=== PATIENT | male | born 1975 | race Caucasian/White ===

== ENCOUNTER 2022-07-14 12:30 | Emergency (ER) | payer OTHER, SELFPAY ==
--- NOTE | ~2022-07-14 | XR_ITS ---
EXAMINATION: XR CHEST CLINICAL INFORMATION: Chest pain. COMPARISON: None TECHNIQUE: 2 views of the chest were obtained. FINDINGS: No significant abnormality is noted involving the heart, lungs, mediastinum, bony thorax or soft tissues. XR/XR chest 2V IMPRESSION: No acute cardiopulmonary process.
--- NOTE | ~2022-07-14 | XR_ITS ---
EXAMINATION: XR SHOULDER, RIGHT CLINICAL INFORMATION: Right shoulder injury. COMPARISON: None TECHNIQUE: AP external rotation, Grashey, scapular Y, and axillary views of the right shoulder. FINDINGS: Mild right acromioclavicular degenerative joint changes are seen with mild joint space narrowing and marginal osteophyte formation. The right glenohumeral joint is unremarkable. There is no acute fracture. The visualized right ribs are intact. The soft tissues are unremarkable. XR/XR shoulder RT min 2V IMPRESSION: Mild right acromioclavicular degenerative joint changes with associated chronic changes. No acute abnormality.
--- NOTE | ~2022-07-14 | CT_ITS ---
EXAMINATION: CT SOFT TISSUE NECK WITH CONTRAST CLINICAL INFORMATION: Right lymphadenopathy COMPARISON: None TECHNIQUE: Following the administration of 60 mL of Omnipaque 350 intravenous contrast, helical imaging was performed in the axial plane with generation of coronal and sagittal reformatted images. This CT examination was performed using dose optimization techniques as appropriate, variously including the following: *Automated exposure control. *Adjustment of mA and/or kV according to patient size (this includes techniques or standardized protocols for targeted exams where dose is matched to indication/reason for exam; i.e. extremities or head). *Use of iterative reconstruction technique. DLP: 516.31 mGy-cm mGy-cm. FINDINGS: There is a heterogeneously enhancing mass predominantly involving the superficial, and to a lesser extent, the deep lobes of the right parotid gland measuring 2.6 x 2.0 x 3.3 cm. Multiple hypodense areas which may reflect cystic change/necrosis. This corresponds to the location of a palpable marker. There is bulging of the overlying skin contour. No pathologically enlarged asymmetric though nonpathologic size criteria right level 2A lymph node measuring 1.3 cm and additional scattered nonpathologically enlarged cervical chain lymph nodes. The oral cavity is normal. Symmetric prominence of bilateral palatine tonsils, probably reactive. Soft tissue along the base of tongue partially effacing the vallecula probably due to lingual tonsillar hypertrophy. Slight asymmetric medialization of the right aryepiglottic fold with prominence of right pyriform sinus and prominent right laryngeal vestibule, which can be correlated clinically for signs of right vocal cord paresis. The left parotid and bilateral submandibular glands are normal. The fat planes of the skull base and soft tissues of the nasopharynx are unremarkable. Carious left posterior mandibular molar tooth. Scattered periapical lucencies, most pronounced of the left maxillary canine tooth with erosion of the overlying buccal cortex. The paranasal sinuses and mastoid air cells are well aerated. The temporomandibular joints are normal. Enlarged and heterogeneous appearance of the thyroid gland which can be correlated with direct function tests for the possibility of thyroiditis. Mild C6-C7 discogenic disease with anterior endplate osteophyte and mild multilevel cervical spondylosis. No suspicious osseous lesion. Normal enhancement of the cervical vascular structures. The imaged portions of the brain parenchyma are unremarkable. Thinning of the bony canals overlying the distal cavernous/supraclinoid internal carotid arteries with possible dehiscence into the sphenoid sinuses. Normal enhancement of the intracranial vascular structures. CT/CT soft tissue neck w IV con IMPRESSION: Heterogeneously enhancing mass predominantly centered within the superficial lobe of the right parotid gland with internal cystic areas/necrosis measuring 2.6 x 2.0 x 3.3 cm. While this may reflect a pleomorphic adenoma, the mass is incompletely characterized on this examination and could be further diagnostically assessed with ultrasound or contrast-enhanced MRI. Nonpathologic size criteria though slightly asymmetric right level 2A lymph node measuring 1.3 cm. Findings described above which can be correlated for signs of right vocal cord paresis. Carious left posterior mandibular molar tooth; correlate with dental examination. Enlarged and heterogeneous appearance of the thyroid gland which can be correlated with direct function tests for the possibility of thyroiditis. Mild
[2022-07-14 12:52] VITALS: BP 131/84; PULSE 69; RESP 20; TEMP 36.7; O2SAT 98; BMI 25.8
[2022-07-14 14:43] VITALS: BP 107/88; PULSE 52; RESP 16; TEMP 36.7; O2SAT 97
[2022-07-14 16:11] VITALS: BP 150/118; PULSE 64; RESP 18; O2SAT 99
--- NOTE | 2022-07-14 16:57 | ECG_ITS ---
Test Reason : cp Blood Pressure : / mmHG Vent. Rate : 056 BPM Atrial Rate : 056 BPM P-R Int : 156 ms QRS Dur : 086 ms QT Int : 408 ms P-R-T Axes : 032 018 019 degrees QTc Int : 393 ms Sinus bradycardia Otherwise normal ECG No previous ECGs available Referred By: Vickie Jose Electronically Signed By:PRIMO CHUNG MD
--- NOTE | 2022-07-14 17:37 | ED.SKABFB ---
HPI - Skin/Abscess/Foreign Bdy General Chief complaint: Skin/Abscess/Foreign Body <Vickie Jose NP - Last Filed: 07/14/22 19:38> Stated complaint: Ear pain/Shoulder pain <Vickie Jose NP - Last Filed: 07/14/22 19:38> Time Seen by Provider: 07/14/22 16:19 <Vickie Jose NP - Last Filed: 07/14/22 19:38> Source: patient <Vickie Jose NP - Last Filed: 07/14/22 19:38> Mode of arrival: ambulatory <Vickie Jose NP - Last Filed: 07/14/22 19:38> Limitations: no limitations <Vickie Jose NP - Last Filed: 07/14/22 19:38> History of Present Illness HPI narrative: Pt is a 47 y/o male with no significant medical history with multiple complaints with his cc being tenderness and swelling to the right side of the neck. He states that approximately one month ago he hurt his right shoulder and it occasionally bothers him. In the last week, his neck on his right side started to bother him. Two days ago, he noticed a lump on the right side of the neck and has swelling to the jaw and face. He has nausea and vomited once or twice in the last couple of days. Along with that, he complains of feeling fatigued over the last two weeks, he also has been having unprotected sex with two female partners since being on a break from his the past two weeks and is having pain with urination. He also mentioned that he has been drinking four 20oz Red Bull drinks per day and nothing else for fluid intake. He states he feels like he is losing weight unintentionally, but has not weighed himself. He has not seen a doctor for approximately three years and said he felt like he needed to get checked once his face and neck swelled up. He denies current chest pain, sob, headache, dizziness, difficulty swallowing, back pain, abd pain, blood in urine, blood in stool or diarrhea. <Vickie Jose NP - Last Filed: 07/14/22 19:38> Related Data Home medications: Previous Rx's Medication Instructions Recorded doxycycline monohydrate 100 mg 100 mg PO BID #14 tabs 07/14/22 tablet <Vickie Jose NP - Last Filed: 07/14/22 19:38> Allergies/Adverse reactions: Allergies Allergy/AdvReac Type Severity Reaction Status Date / Time No Known Allergies Allergy Verified 07/14/22 16:55 <Vickie Jose NP - Last Filed: 07/14/22 19:38> Review of Systems Review of Systems: Yes all other systems are reviewed and are negative <Vickie Jose NP - Last Filed: 07/14/22 19:38> Constitutional: Constitutional: Reports no additional constitutional complaints, Denies body ache(s), Denies chills, Denies fever(s), Denies headache(s) and Denies weakness <Vickie Jose NP - Last Filed: 07/14/22 19:38> Eyes: Eyes: Reports no additional eye complaints and Denies change in vision <Vickie Jose NP - Last Filed: 07/14/22 19:38> ENT: Reports system reviewed and no additional complaints, except as documented, Denies dizziness, Denies headache(s), Denies nasal congestion, Denies nasal discharge and Reports neck pain <Vickie Jose NP - Last Filed: 07/14/22 19:38> Cardiovascular: Cardiovascular: Reports no additional cardiovascular complaints, Denies chest pain, Denies leg edema and Denies dyspnea <Vickie Jose NP - Last Filed: 07/14/22 19:38> Respiratory: Respiratory: Reports no additional respiratory complaints, Denies cough and Denies dyspnea <Vickie Jose NP - Last Filed: 07/14/22 19:38> Gastrointestinal: Gastrointestinal: Reports no additional gastrointestinal complaints, Denies abdominal pain, Denies diarrhea, Denies nausea and Denies vomiting <Vickie Jose NP - Last Filed: 07/14/22 19:38> Genitourinary: Genitourinary: Reports dysuria, Denies flank pain, Denies penile discharge, Denies scrotal swelling, Denies testicular pain, Denies urinary frequency, Denies urinary hesitancy, Denies urinary incontinence and Denies urinary urgency <Vickie Jose NP - Last Filed: 07/14/22 19:38> Musculoskeletal: Musculoskeletal: Reports no additional musculoskeletal complaints, Denies back pain, Reports arthralgias, Denies joint swelling, Reports neck pain, Denies numbness and Denies tingling <Vickie Jose NP - Last Filed: 07/14/22 19:38> Integumentary/Breasts: Skin/Breast: Reports system reviewed and no additional complaints, except as docu and Denies rash <Vickie Jose WINE CE[employer] WORKER - Last Filed: 07/14/22 19:38> Neurologic: Reports system reviewed and no additional complaints, except as documented, Denies Abnormal speech present, Denies dizziness, Denies headache(s), Denies numbness, Denies tingling and Denies weakness <Vickie Jose NP - Last Filed: 07/14/22 19:38> [facility] Past Medical History Attestation statement: The following information was validated with the patient. <Vickie Jose NP - Last Filed: 07/14/22 19:38> Source: old records reviewed and nursing notes reviewed <Vickie Jose NP - Last Filed: 07/14/22 19:38> Social History Social History: Social History Advance Directives: No Advance Directives Information Provided: No <Vickie Jose NP - Last Filed: 07/14/22 19:38> Physical Exam Vital Signs: Vital Signs: Last Vital Signs Temp 98.1 F 07/14/22 14:43 Pulse 64 07/14/22 16:11 Resp 18 07/14/22 16:11 BP 150/118 H 07/14/22 16:11 Pulse Ox 99 07/14/22 16:11 O2 Del Method 07/14/22 16:11 BMI result Body Mass Index 25.8 <Vickie Jose NP - Last Filed: 07/14/22 19:38> Vital Signs: Last Vital Signs Temp 98.1 F 07/14/22 14:43 Pulse 64 07/14/22 16:11 Resp 18 07/14/22 16:11 BP 150/118 H 07/14/22 16:11 Pulse Ox 99 07/14/22 16:11 O2 Del Method 07/14/22 16:11 BMI result Body Mass Index 25.8 <Ramakrishna Mancilla - Last Filed: 07/14/22 21:09> Const: General: cooperative, healthy appearing, comfortable and no acute distress <Vickie Jose NP - Last Filed: 07/14/22 19:38> Orientation/consciousness: patient oriented x3 <Vickie Jose NP - Last Filed: 07/14/22 19:38> Limitations: no limitations <Vickie Jose NP - Last Filed: 07/14/22 19:38> HEENT: Head: Yes normal to inspection <Vickie Jose NP - Last Filed: 07/14/22 19:38> Ears: hearing grossly normal bilaterally and TM's normal bilaterally <Vickie Jose NP - Last Filed: 07/14/22 19:38> General nose exam: Normal external nose present <Vickie Jose NP - Last Filed: 07/14/22 19:38> Face and sinus: Yes normal facial exam <Vickie Jose NP - Last Filed: 07/14/22 19:38> Mouth: Normal oral and palatal mucosa present <Vickie Jose NP - Last Filed: 07/14/22 19:38> Throat: Yes posterior oropharynx normal, Yes tonsils normal and Yes uvula midline <Vickie Jose NP - Last Filed: 07/14/22 19:38> Eyes: General: appearance normal, both eyes and all related structures <Vickie Jose NP - Last Filed: 07/14/22 19:38> Pupils: Equal, round and reactive pupils present <Vickie Jose NP - Last Filed: 07/14/22 19:38> Neck: Other: there is a large lymph node noted to the right submandibular area which is soft, mobile, nontender there is a 2nd large lymph noted noted to the right anterior cervical area which is soft, mobile and nontender <Vickie Jose NP - Last Filed: 07/14/22 19:38> Neck: Yes normal visual inspection, Yes full ROM, Yes no meningeal signs and Yes lymphadenopathy <Vickie Jose W[employer] CELL[employer] WORKER - Last Filed: 07/14/22 19:38> Chest: Chest palpation & inspection: normal inspection of the chest <Vickie Jose W[employer] CELL[employer] WORKER - Last Filed: 07/14/22 19:38> Resp: Effort & Inspection: normal respiratory effort <Vickie Jose W[employer] CELL[employer] WORKER - Last Filed: 07/14/22 19:38> Auscultation: clear to auscultation bilaterally <Vickie Jose W[employer] CE[employer] WORKER - Last Filed: 07/14/22 19:38> Cardio: Rate: regular rate <Vickie Jose [employer] CELL[employer] WORKER - Last Filed: 07/14/22 19:38> Rhythm: regular rhythm <Vickie Jose W[employer] CELL[employer] WORKER - Last Filed: 07/14/22 19:38> Peripheral pulses: Peripheral pulses 2+ throughout <Vickie Jose WINE CELL[employer] WORKER - Last Filed: 07/14/22 19:38> GI: Inspection: Yes normal to inspection <Vickie oJse [employer] CELL[employer] WORKER - Last Filed: 07/14/22 19:38> Palpation (GI): Soft to palpation and nontender <Vickie Jose W[employer] CELL[employer] WORKER - Last Filed: 07/14/22 19:38> Auscultation: normal bowel sounds <Vickie Jose WINE CELL[employer] WORKER - Last Filed: 07/14/22 19:38> Back/Spine/Pelvis: Thoracic/Lumbar Spine: thoracic and lumbar spine normal to inspection <Vickie Jose W[employer] CE[employer] WORKER - Last Filed: 07/14/22 19:38> Skin: General skin exam: no rashes or lesions noted <Vickie Jose [employer] CELL[employer] WORKER - Last Filed: 07/14/22 19:38> Neuro: General: patient oriented x3, moves all extremities, no meningeal signs, no focal motor deficits and normal sensation to monofilament <Vickie Jose WINE CELLAR WORKER - Last Filed: 07/14/22 19:38> Cranial nerves: Yes CN's II-XII intact bilaterally, Yes Equal, round and reactive pupils present, Yes Bilaterally intact EOM present, Yes Nystagmus not present and Yes Normal facial strength present <Vickiedejon Jose NP - Last Filed: 07/14/22 19:38> Cognition (Neuro): normal cognition <Vickiedejon Jose NP - Last Filed: 07/14/22 19:38> Speech: No Abnormal speech present <Vickie RishiSEBASTIEN sanders - Last Filed: 07/14/22 19:38> Gait exam (Neuro): Normal gait present <Vickiedejon Jose NP - Last Filed: 07/14/22 19:38> Motor exam (neuro): 5/5 motor strength present throughout <Vickie RishiSEBASTIEN sanders - Last Filed: 07/14/22 19:38> Sensory Exam: Normal double simultaneous stimulation for sensation <Vickiedejon Jose NP - Last Filed: 07/14/22 19:38> Extrem: General: Yes normal to inspection, Yes no pedal edema and Yes no calf tenderness <Vickie Jose NP - Last Filed: 07/14/22 19:38> Shoulder/upper arm images: 1. + swelling with tenderness on exam with ?deformity noted patient is able to move the right shoulder but has pain with abduction. Normal radial and ulnar pulses distally. Normal sensation. <Vickie Jose NP - Last Filed: 07/14/22 19:38> Course Course Course Narrative: 1939-Sign out to [address] pending CT soft tissue neck. <Vickiemargaret Jose NP - Last Filed: 07/14/22 19:38> Reevaluation(s) Reevaluation #1: Patient was seen somewhat tenacious pending CT scan of the neck which shows a small parotid gland with some surrounding lymphadenopathy. The patient referred to ENT for follow-up. Results were discussed with the patient. There is no evidence of airway compromise. <Ramakrishna Mancilla - Last Filed: 07/14/22 21:09> Medications Administered Discontinued Medications Generic Name Dose Route Start Last Admin Trade Name Danilo PRN Reason Stop Dose Admin Ceftriaxone Sodium 500 mg/ 50 mls @ 100 mls/hr 07/14/22 19:25 07/14/22 20:23 Sodium Chloride IV 07/14/22 19:54 Infused ONCE ONE Infusion Iohexol 100 ml 07/14/22 19:40 07/14/22 19:42 Iohexol 350 Mg/Ml 100 Ml Infus..Btl IV 07/14/22 19:41 60 ml ONCE ONE Administration <Vickie Jose NP - Last Filed: 07/14/22 19:38> Medications Administered Discontinued Medications Generic Name Dose Route Start Last Admin Trade Name Danilo PRN Reason Stop Dose Admin Ceftriaxone Sodium 500 mg/ 50 mls @ 100 mls/hr 07/14/22 19:25 07/14/22 20:23 Sodium Chloride IV 07/14/22 19:54 Infused ONCE ONE Infusion Iohexol 100 ml 07/14/22 19:40 07/14/22 19:42 Iohexol 350 Mg/Ml 100 Ml Infus..Btl IV 07/14/22 19:41 60 ml ONCE ONE Administration <Ramakrishna Mancilla - Last Filed: 07/14/22 21:09> Medical Decision Making Medical Decision Making MDM Narrative: This a 47-year-old male with no known medical history who presents to the emergency with multiple complaints. -patient reports right shoulder pain for 1 month after having an injury that was traumatic. Patient was never seen for this and reports chronic continued pain in the right shoulder. On exam patient with significant tenderness, swelling and ? deformity over the distal clavicular area. consider fracture, AC joint separation, dislocation. Will check x-rays -patient also complaining of dysuria with recent new sexual partners and unprotected sexual intercourse. exam normal. Will check UA, CT NG - patient also reports over the last 2-3 days he has noticed right neck swelling and discomfort. He reports he did have some facial swelling but I do not appreciate any on exam. He does have some significant lymphadenopathy on the right submandibular and anterior cervical area. Posterior oropharynx is normal. No recent URI symptoms or flu-like symptoms. Patient with no difficulty swallowing or breathing. Patient denies any night sweats but does report some unintentional weight loss please unable to quantify this. Will obtain labs including mono spot, Lyme panel, viral testing. will check chest x-ray, CT soft tissue neck with IV contrast <Vickie Jose NP - Last Filed: 07/14/22 19:38> Differential Diagnosis Differential Diagnoses: The differential diagnosis associated with the presentation includes <Vickie Jose NP - Last Filed: 07/14/22 19:38> Cervical lymphadenopathy HIV TB Mononucleosis Malignancy infection dysuria UTI Gonorrhea Chlamydia Shoulder injury Dislocation Fracture <Vickie Blackwelltommy, WINE CELLAR WORKER - Last Filed: 07/14/22 19:38> Lab Data MDM Lab Attestation statement: I reviewed the patient's lab results. <Vickie Blackwelltommy, WINE CELLAR WORKER - Last Filed: 07/14/22 19:38> Result Diagrams: 07/14/22 17:55 07/14/22 17:55 <Vickiemargaret Jose, WINE CE[employer]AR WORKER - Last Filed: 07/14/22 19:38> Labs: Lab Results 07/14/22 07/14/22 07/14/22 Range/Units 17:55 17:55 17:55 WBC 6.8 (4.8-10.8) X10*3/uL RBC 4.49 L (4.60-5.80) X10*6/uL Hgb 15.7 (14.0-18.0) g/dl Hct 45.2 (42.0-52.0) % MCV 100.7 H (80.0-98.0) fL MCH 35.0 H (27.0-33.0) pg MCHC 34.7 (31.0-36.0) g/dl RDW 14.2 (11.0-16.0) % Plt Count 271 (160-400) X10*3/uL MPV 9.4 (9.4-12.4) fL Immature Gran % (Auto) 0.7 H (0.0-0.4) % Neut % (Auto) 35.9 L (45-73) % Lymph % (Auto) 53.6 H (20-40) % [place] % (Auto) 5.3 (2-11) % Eos % (Auto) 3.8 (0-4) % Baso % (Auto) 0.7 (0-2) % Lymph # (Auto) 3.6 (1.2-4.9) X10*3/uL [place] # (Auto) 0.4 (0.1-1.2) X10*3/uL Eos # (Auto) 0.3 (0.0-0.4) X10*3/uL Baso # (Auto) 0.1 (0.0-0.2) X10*3/uL Abs Immat Gran (auto) 0.05 H (0.00-0.03) X10*3/uL Absolute Neuts (auto) 2.4 (2.0-8.3) x10*3/uL Absolute Nucleated RBC 0.000 (0.0-0.012) X10*3/uL Nucleated RBC % (auto) 0.0 (0.0-0.2) /100WBC PT 12.3 (10.0-13.1) SEC INR 1.1 (0.9-1.1) Sodium 139 (135-145) mmol/L Potassium 4.2 (3.3-5.1) mmol/L Chloride 105 (96-108) mmol/L Carbon Dioxide 29 (22-29) mmol/L Anion Gap 9 L (12-20) BUN 15 (9-16) mg/dL Creatinine 0.91 (0.5-1.4) mg/dL Estim Creat Clear Calc 88.6 Estimated GFR > 60 Random Glucose 82 (60-115) mg/dL Lactic Acid (0.5-2.0) mmol/L Calcium 8.9 (8.4-10.2) mg/dL Total Bilirubin 0.6 (0.0-1.0) mg/dL Direct Bilirubin < 0.2 (0.0-0.5) mg/dL AST 25 (5-37) U/L ALT 18 (0-40) U/L Alkaline Phosphatase 114 (39-117) U/L Total Protein 7.6 (6.5-8.0) g/dL Albumin 4.3 (3.5-5.0) g/dL Urine Color Urine Appearance Urine pH (5.0-9.0) Ur Specific [place] (1.005-1.025) Urine Protein (Neg-Trace) mg/dL Urine Glucose (UA) (Negative) mg/dL Urine Ketones (Negative) mg/dL Urine Blood (Negative) Urine Nitrite (Negative) Ur Leukocyte Esterase (Negative) Monoscreen (Negative) Influenza Type A (PCR) (Negative) Influenza Type B (PCR) (Negative) RSV RNA Qual (PCR) (Negative) SARS-CoV-2 RNA (RT-PCR) (Negative) S. pyogenes GrpA SUMMER (Negative) 07/14/22 07/14/22 07/14/22 Range/Units 17:55 17:55 17:55 WBC (4.8-10.8) X10*3/uL RBC (4.60-5.80) X10*6/uL Hgb (14.0-18.0) g/dl Hct (42.0-52.0) % MCV (80.0-98.0) fL MCH (27.0-33.0) pg MCHC (31.0-36.0) g/dl RDW (11.0-16.0) % Plt Count (160-400) X10*3/uL MPV (9.4-12.4) fL Immature Gran % (Auto) (0.0-0.4) % Neut % (Auto) (45-73) % Lymph % (Auto) (20-40) % [place] % (Auto) (2-11) % Eos % (Auto) (0-4) % Baso % (Auto) (0-2) % Lymph # (Auto) (1.2-4.9) X10*3/uL [place] # (Auto) (0.1-1.2) X10*3/uL Eos # (Auto) (0.0-0.4) X10*3/uL Baso # (Auto) (0.0-0.2) X10*3/uL Abs Immat Gran (auto) (0.00-0.03) X10*3/uL Absolute Neuts (auto) (2.0-8.3) x10*3/uL Absolute Nucleated RBC (0.0-0.012) X10*3/uL Nucleated RBC % (auto) (0.0-0.2) /100WBC PT (10.0-13.1) SEC INR (0.9-1.1) Sodium (135-145) mmol/L Potassium (3.3-5.1) mmol/L Chloride (96-108) mmol/L Carbon Dioxide (22-29) mmol/L Anion Gap (12-20) BUN (9-16) mg/dL Creatinine (0.5-1.4) mg/dL Estim Creat Clear Calc Estimated GFR Random Glucose (60-115) mg/dL Lactic Acid 0.6 (0.5-2.0) mmol/L Calcium (8.4-10.2) mg/dL Total Bilirubin (0.0-1.0) mg/dL Direct Bilirubin (0.0-0.5) mg/dL AST (5-37) U/L ALT (0-40) U/L Alkaline Phosphatase (39-117) U/L Total Protein (6.5-8.0) g/dL Albumin (3.5-5.0) g/dL Urine Color Urine Appearance Urine pH (5.0-9.0) Ur Specific [place] (1.005-1.025) Urine Protein (Neg-Trace) mg/dL Urine Glucose (UA) (Negative) mg/dL Urine Ketones (Negative) mg/dL Urine Blood (Negative) Urine Nitrite (Negative) Ur Leukocyte Esterase (Negative) Monoscreen Negative (Negative) Influenza Type A (PCR) (Negative) Influenza Type B (PCR) (Negative) RSV RNA Qual (PCR) (Negative) SARS-CoV-2 RNA (RT-PCR) (Negative) S. pyogenes GrpA SUMMER Negative (Negative) 07/14/22 07/14/22 Range/Units 17:55 17:55 WBC (4.8-10.8) X10*3/uL RBC (4.60-5.80) X10*6/uL Hgb (14.0-18.0) g/dl Hct (42.0-52.0) % MCV (80.0-98.0) fL MCH (27.0-33.0) pg MCHC (31.0-36.0) g/dl RDW (11.0-16.0) % Plt Count (160-400) X10*3/uL MPV (9.4-12.4) fL Immature Gran % (Auto) (0.0-0.4) % Neut % (Auto) (45-73) % Lymph % (Auto) (20-40) % [place] % (Auto) (2-11) % Eos % (Auto) (0-4) % Baso % (Auto) (0-2) % Lymph # (Auto) (1.2-4.9) X10*3/uL [place] # (Auto) (0.1-1.2) X10*3/uL Eos # (Auto) (0.0-0.4) X10*3/uL Baso # (Auto) (0.0-0.2) X10*3/uL Abs Immat Gran (auto) (0.00-0.03) X10*3/uL Absolute Neuts (auto) (2.0-8.3) x10*3/uL Absolute Nucleated RBC (0.0-0.012) X10*3/uL Nucleated RBC % (auto) (0.0-0.2) /100WBC PT (10.0-13.1) SEC INR (0.9-1.1) Sodium (135-145) mmol/L Potassium (3.3-5.1) mmol/L Chloride (96-108) mmol/L Carbon Dioxide (22-29) mmol/L Anion Gap (12-20) BUN (9-16) mg/dL Creatinine (0.5-1.4) mg/dL Estim Creat Clear Calc Estimated GFR Random Glucose (60-115) mg/dL Lactic Acid (0.5-2.0) mmol/L Calcium (8.4-10.2) mg/dL Total Bilirubin (0.0-1.0) mg/dL Direct Bilirubin (0.0-0.5) mg/dL AST (5-37) U/L ALT (0-40) U/L Alkaline Phosphatase (39-117) U/L Total Protein (6.5-8.0) g/dL Albumin (3.5-5.0) g/dL Urine Color Yellow Urine Appearance Clear Urine pH 7.5 (5.0-9.0) Ur Specific [place] 1.025 (1.005-1.025) Urine Protein Trace (Neg-Trace) mg/dL Urine Glucose (UA) Negative (Negative) mg/dL Urine Ketones Negative (Negative) mg/dL Urine Blood Negative (Negative) Urine Nitrite Negative (Negative) Ur Leukocyte Esterase Negative (Negative) Monoscreen (Negative) Influenza Type A (PCR) NEGATIVE (Negative) Influenza Type B (PCR) NEGATIVE (Negative) RSV RNA Qual (PCR) NEGATIVE (Negative) SARS-CoV-2 RNA (RT-PCR) NEGATIVE (Negative) S. pyogenes GrpA SUMMER (Negative) <Vickie Jose, WINE CELL[employer] WORKER - Last Filed: 07/14/22 19:38> Lab Results 07/14/22 07/14/22 07/14/22 Range/Units 17:55 17:55 17:55 WBC 6.8 (4.8-10.8) X10*3/uL RBC 4.49 L (4.60-5.80) X10*6/uL Hgb 15.7 (14.0-18.0) g/dl Hct 45.2 (42.0-52.0) % MCV 100.7 H (80.0-98.0) fL MCH 35.0 H (27.0-33.0) pg MCHC 34.7 (31.0-36.0) g/dl RDW 14.2 (11.0-16.0) % Plt Count 271 (160-400) X10*3/uL MPV 9.4 (9.4-12.4) fL Immature Gran % (Auto) 0.7 H (0.0-0.4) % Neut % (Auto) 35.9 L (45-73) % Lymph % (Auto) 53.6 H (20-40) % [place] % (Auto) 5.3 (2-11) % Eos % (Auto) 3.8 (0-4) % Baso % (Auto) 0.7 (0-2) % Lymph # (Auto) 3.6 (1.2-4.9) X10*3/uL [place] # (Auto) 0.4 (0.1-1.2) X10*3/uL Eos # (Auto) 0.3 (0.0-0.4) X10*3/uL Baso # (Auto) 0.1 (0.0-0.2) X10*3/uL Abs Immat Gran (auto) 0.05 H (0.00-0.03) X10*3/uL Absolute Neuts (auto) 2.4 (2.0-8.3) x10*3/uL Absolute Nucleated RBC 0.000 (0.0-0.012) X10*3/uL Nucleated RBC % (auto) 0.0 (0.0-0.2) /100WBC PT 12.3 (10.0-13.1) SEC INR 1.1 (0.9-1.1) Sodium 139 (135-145) mmol/L Potassium 4.2 (3.3-5.1) mmol/L Chloride 105 (96-108) mmol/L Carbon Dioxide 29 (22-29) mmol/L Anion Gap 9 L (12-20) BUN 15 (9-16) mg/dL Creatinine 0.91 (0.5-1.4) mg/dL Estim Creat Clear Calc 88.6 Estimated GFR > 60 Random Glucose 82 (60-115) mg/dL Lactic Acid (0.5-2.0) mmol/L Calcium 8.9 (8.4-10.2) mg/dL Total Bilirubin 0.6 (0.0-1.0) mg/dL Direct Bilirubin < 0.2 (0.0-0.5) mg/dL AST 25 (5-37) U/L ALT 18 (0-40) U/L Alkaline Phosphatase 114 (39-117) U/L Total Protein 7.6 (6.5-8.0) g/dL Albumin 4.3 (3.5-5.0) g/dL Urine Color Urine Appearance Urine pH (5.0-9.0) Ur Specific [place] (1.005-1.025) Urine Protein (Neg-Trace) mg/dL Urine Glucose (UA) (Negative) mg/dL Urine Ketones (Negative) mg/dL Urine Blood (Negative) Urine Nitrite (Negative) Ur Leukocyte Esterase (Negative) Monoscreen (Negative) Influenza Type A (PCR) (Negative) Influenza Type B (PCR) (Negative) RSV RNA Qual (PCR) (Negative) SARS-CoV-2 RNA (RT-PCR) (Negative) S. pyogenes GrpA SUMMER (Negative) 07/14/22 07/14/22 07/14/22 Range/Units 17:55 17:55 17:55 WBC (4.8-10.8) X10*3/uL RBC (4.60-5.80) X10*6/uL Hgb (14.0-18.0) g/dl Hct (42.0-52.0) % MCV (80.0-98.0) fL MCH (27.0-33.0) pg MCHC (31.0-36.0) g/dl RDW (11.0-16.0) % Plt Count (160-400) X10*3/uL MPV (9.4-12.4) fL Immature Gran % (Auto) (0.0-0.4) % Neut % (Auto) (45-73) % Lymph % (Auto) (20-40) % [place] % (Auto) (2-11) % Eos % (Auto) (0-4) % Baso % (Auto) (0-2) % Lymph # (Auto) (1.2-4.9) X10*3/uL [place] # (Auto) (0.1-1.2) X10*3/uL Eos # (Auto) (0.0-0.4) X10*3/uL Baso # (Auto) (0.0-0.2) X10*3/uL Abs Immat Gran (auto) (0.00-0.03) X10*3/uL Absolute Neuts (auto) (2.0-8.3) x10*3/uL Absolute Nucleated RBC (0.0-0.012) X10*3/uL Nucleated RBC % (auto) (0.0-0.2) /100WBC PT (10.0-13.1) SEC INR (0.9-1.1) Sodium (135-145) mmol/L Potassium (3.3-5.1) mmol/L Chloride (96-108) mmol/L Carbon Dioxide (22-29) mmol/L Anion Gap (12-20) BUN (9-16) mg/dL Creatinine (0.5-1.4) mg/dL Estim Creat Clear Calc Estimated GFR Random Glucose (60-115) mg/dL Lactic Acid 0.6 (0.5-2.0) mmol/L Calcium (8.4-10.2) mg/dL Total Bilirubin (0.0-1.0) mg/dL Direct Bilirubin (0.0-0.5) mg/dL AST (5-37) U/L ALT (0-40) U/L Alkaline Phosphatase (39-117) U/L Total Protein (6.5-8.0) g/dL Albumin (3.5-5.0) g/dL Urine Color Urine Appearance Urine pH (5.0-9.0) Ur Specific [place] (1.005-1.025) Urine Protein (Neg-Trace) mg/dL Urine Glucose (UA) (Negative) mg/dL Urine Ketones (Negative) mg/dL Urine Blood (Negative) Urine Nitrite (Negative) Ur Leukocyte Esterase (Negative) Monoscreen Negative (Negative) Influenza Type A (PCR) (Negative) Influenza Type B (PCR) (Negative) RSV RNA Qual (PCR) (Negative) SARS-CoV-2 RNA (RT-PCR) (Negative) S. pyogenes GrpA SUMMER Negative (Negative) 07/14/22 07/14/22 Range/Units 17:55 17:55 WBC (4.8-10.8) X10*3/uL RBC (4.60-5.80) X10*6/uL Hgb (14.0-18.0) g/dl Hct (42.0-52.0) % MCV (80.0-98.0) fL MCH (27.0-33.0) pg MCHC (31.0-36.0) g/dl RDW (11.0-16.0) % Plt Count (160-400) X10*3/uL MPV (9.4-12.4) fL Immature Gran % (Auto) (0.0-0.4) % Neut % (Auto) (45-73) % Lymph % (Auto) (20-40) % [place] % (Auto) (2-11) % Eos % (Auto) (0-4) % Baso % (Auto) (0-2) % Lymph # (Auto) (1.2-4.9) X10*3/uL [place] # (Auto) (0.1-1.2) X10*3/uL Eos # (Auto) (0.0-0.4) X10*3/uL Baso # (Auto) (0.0-0.2) X10*3/uL Abs Immat Gran (auto) (0.00-0.03) X10*3/uL Absolute Neuts (auto) (2.0-8.3) x10*3/uL Absolute Nucleated RBC (0.0-0.012) X10*3/uL Nucleated RBC % (auto) (0.0-0.2) /100WBC PT (10.0-13.1) SEC INR (0.9-1.1) Sodium (135-145) mmol/L Potassium (3.3-5.1) mmol/L Chloride (96-108) mmol/L Carbon Dioxide (22-29) mmol/L Anion Gap (12-20) BUN (9-16) mg/dL Creatinine (0.5-1.4) mg/dL Estim Creat Clear Calc Estimated GFR Random Glucose (60-115) mg/dL Lactic Acid (0.5-2.0) mmol/L Calcium (8.4-10.2) mg/dL Total Bilirubin (0.0-1.0) mg/dL Direct Bilirubin (0.0-0.5) mg/dL AST (5-37) U/L ALT (0-40) U/L Alkaline Phosphatase (39-117) U/L Total Protein (6.5-8.0) g/dL Albumin (3.5-5.0) g/dL Urine Color Yellow Urine Appearance Clear Urine pH 7.5 (5.0-9.0) Ur Specific [place] 1.025 (1.005-1.025) Urine Protein Trace (Neg-Trace) mg/dL Urine Glucose (UA) Negative (Negative) mg/dL Urine Ketones Negative (Negative) mg/dL Urine Blood Negative (Negative) Urine Nitrite Negative (Negative) Ur Leukocyte Esterase Negative (Negative) Monoscreen (Negative) Influenza Type A (PCR) NEGATIVE (Negative) Influenza Type B (PCR) NEGATIVE (Negative) RSV RNA Qual (PCR) NEGATIVE (Negative) SARS-CoV-2 RNA (RT-PCR) NEGATIVE (Negative) S. pyogenes GrpA [facility] (Negative) <Ramakrishna Mancilla - Last Filed: 07/14/22 21:09> Independent Interpretation I performed an independent interpretation of an: EKG and Plain X-Ray <Vickie Jose NP - Last Filed: 07/14/22 19:38> Interpretation: -I independently reviewed the x-ray of the right vemrnerz-g-rix read by radiologist as degenerative changes. On my own interpretation there is separation noted at the AC joint. This was likely from patient's trauma 1 month ago. Patient will be referred to ortho outpatient. I independently reviewed the EKG which shows sinus bradycardia with rate 56, normal WA, normal QRS, normal QT <Vickie Jose NP - Last Filed: 07/14/22 19:38> Radiology Impression Discussion of test interpretation with radiology: I have reviewed the radiologist's reading. <Vickie Jsoe NP - Last Filed: 07/14/22 19:38> Radiologist Impression: [address] [address] XRay Report Signed Patient: Dmitri Mackenzie MR#: [id number] : 1975 Acct:[id number] Age/Sex: 47 / M ADM Date: 07/14/22 Loc: HO.ED Attending Dr: Ordering Physician: Vickie Abdalla NP Date of Service: 07/14/22 Procedure(s): XR shoulder RT min 2V Accession Number(s): [id number] cc: Vickie Abdalla NP~ EXAMINATION: XR SHOULDER, RIGHT CLINICAL INFORMATION: Right shoulder injury.? COMPARISON: None? TECHNIQUE: AP external rotation, Grashey, scapular Y, and axillary views of the right shoulder. FINDINGS: Mild right acromioclavicular degenerative joint changes are seen with mild joint space narrowing and marginal osteophyte formation. The right glenohumeral joint is unremarkable. There is no acute fracture. The visualized right ribs are intact. The soft tissues are unremarkable.? XR/XR shoulder RT min 2V IMPRESSION: Mild right acromioclavicular degenerative joint changes with associated chronic changes. No acute abnormality. [address] [address] XRay Report Signed Patient: Dmitri Mackenzie MR#: [id number] : 1975 Acct:[id number] Age/Sex: 47 / M ADM Date: 07/14/22 Loc: .ED Attending Dr: Ordering Physician: Vickie Abdalla NP Date of Service: 07/14/22 Procedure(s): XR chest 2V Accession Number(s): [id number] cc: Vickie Abdalla NP~ EXAMINATION: XR CHEST CLINICAL INFORMATION: Chest pain. COMPARISON: None TECHNIQUE: 2 views of the chest were obtained. FINDINGS: No significant abnormality is noted involving the heart, lungs, mediastinum, bony thorax or soft tissues. XR/XR chest 2V IMPRESSION: No acute cardiopulmonary process. <Vickie Jose NP - Last Filed: 07/14/22 19:38> Discharge Plan Discharge Clinical Impression: Lymphadenopathy, Concern about STD in male without diagnosis, Right shoulder strain <Vickie Jose NP - Last Filed: 07/14/22 19:38> Patient Disposition: Still a Patient <Vickie Jose NP - Last Filed: 07/14/22 19:38> Instructions: Sexually Transmitted Diseases (ED), Muscle Strain (ED), Lymphadenopathy (ED) <Vickie Jose NP - Last Filed: 07/14/22 19:38> Additional Instructions: we did test you for sexually transmitted diseases but these test results are still pending. We are treating prophylactically with antibiotics you likely have a strain of one ligaments in your shoulder and so you need to follow-up with orthopedics for this. Follow-up with Dr. Castañeda for your swollen glands in your neck. <Vickie Jose NP - Last Filed: 07/14/22 19:38> Prescriptions: New doxycycline monohydrate 100 mg tablet 100 mg PO BID Qty: 14 0RF <Vickie Jose NP - Last Filed: 07/14/22 19:38> Referrals: [facility] [place]Provider Group] Johan Castañeda [Physician] - <Vickie Jose NP - Last Filed: 07/14/22 19:38>
[2022-07-14 18:02] LABS: MANUAL DIFF FLAG NO
[2022-07-14 18:11] LABS: Appearance Urine Clear; Color Urine Yellow; Glucose Urine UA Negative (Negative); IDNOW Serial# 6674DD1D; Leukocyte Esterase Urine Negative (Negative); Nitrite Urine Negative (Negative); PH 7.5 (5.0-9.0); Specific Gravity - Urine 1.025 (1.005-1.025); Strep A Nucleic Acid Negative (Negative); Urine Blood Negative (Negative); Urine Ketones Negative (Negative); Urine Protein Trace mg/dL (Neg-Trace)
[2022-07-14 18:17] LABS: INTERNATIONAL NORM RATIO 1.1 (0.9-1.1); Prothrombin Time 12.3 SEC (10.0-13.1)
[2022-07-14 18:20] LABS: Monotest Negative (Negative)
[2022-07-14 18:24] LABS: Basophils Absolute Auto 0.1 X10*3/uL (0.0-0.2); Basophils Percent Auto 0.7 % (0-2); Eosinophils Absolute Auto 0.3 X10*3/uL (0.0-0.4); Eosinophils Percent Auto 3.8 % (0-4); Hematocrit 45.2 % (42.0-52.0); Hemoglobin 15.7 g/dl (14.0-18.0); Imm Gran Abs Auto 0.05 X10*3/uL (0.00-0.03); Imm Gran Pct Auto 0.7 % (0.0-0.4); Lactic Acid 0.6 mmol/L (0.5-2.0); Lymphocytes Absolute Auto 3.6 X10*3/uL (1.2-4.9); Lymphocytes Percent Auto 53.6 % (20-40); Mean Corpuscular HGB Conc 34.7 g/dl (31.0-36.0); Mean Corpuscular Volume 100.7 fL (80.0-98.0); Mean Platelet Volume 9.4 fL (9.4-12.4); Monocytes Absolute Auto 0.4 X10*3/uL (0.1-1.2); Monocytes Percent Auto 5.3 % (2-11); Neutrophils Absolute Auto 2.4 x10*3/uL (2.0-8.3); Neutrophils Percent Auto 35.9 % (45-73); Platelet Count 271 X10*3/uL (160-400); Red Blood Count 4.49 X10*6/uL (4.60-5.80); Red Cell Distribution Width 14.2 % (11.0-16.0); White Blood Count 6.8 X10*3/uL (4.8-10.8)
[2022-07-14 18:28] LABS: Alanine Aminotransferase 18 U/L (0-40); Albumin Level 4.3 g/dL (3.5-5.0); Alkaline Phosphatase 114 U/L (39-117); Anion Gap 9 (12-20); Aspartate Amino Transferase 25 U/L (5-37); Bilirubin Direct < 0.2 mg/dL (0.0-0.5); Bilirubin Total 0.6 mg/dL (0.0-1.0); Blood Urea Nitrogen 15 mg/dL (9-16); Calcium 8.9 mg/dL (8.4-10.2); Carbon Dioxide 29 mmol/L (22-29); Chloride 105 mmol/L (96-108); Creatinine Clr Calc Pharmacy 88.6; Estimated Glomerular Filt Rate > 60; Glucose Random 82 mg/dL (60-115); Potassium 4.2 mmol/L (3.3-5.1); Sodium 139 mmol/L (135-145); Total Protein 7.6 g/dL (6.5-8.0)
[2022-07-14 19:15] LABS: Influenza A PCR NEGATIVE (Negative); Influenza B PCR NEGATIVE (Negative); Resp Syncy Virus RNA Qual PCR NEGATIVE (Negative); SARS COV2 PCR INHOUSE NEGATIVE (Negative)
[2022-07-14] MEDS: iohexoL 350 MG/ML 100 ML INFUS..BTL IV (19:42)
[2022-07-14 21:46] LABS: T4 Thyroxine 6.6 ug/dL (4.5-12.0)
[2022-07-15 07:15] LABS: CT PCR NOT DETECTED (Not Detect.); NG PCR NOT DETECTED (Not Detect.)
[2022-07-16 22:03] LABS: Lyme Abs Screen <0.90 index
== END 2022-07-14 21:14 | disposition still patient (30) ==
PROVIDERS: Nurse Practitioner Family; Physician Assistant; Emergency Provider Emergency Medicine
DX: R59.1 Generalized enlarged lymph nodes (principal); M25.511 Pain in right shoulder; S46.911D Strain of unspecified muscle, fascia and tendon at shoulder and upper arm level, right arm, subsequent encounter; X58.XXXD Exposure to other specified factors, subsequent encounter; Z20.2 Contact with and (suspected) exposure to infections with a predominantly sexual mode of transmission; Z20.822 Contact with and (suspected) exposure to COVID-19; Z20.828 Contact with and (suspected) exposure to other viral communicable diseases
CPT/HCPCS: 0241U; 0353U; 36415; 70491; 71046; 73030; 80048; 80076; 81003; 83605; 84436; 84443; 85025; 85610; 86308; 86617; 86618; 87040; 87651; 93005; 96365; 99283; 99284; J0696; Q9967

== ENCOUNTER 2023-03-23 16:03 | Emergency (ER) | payer OTHER, SELFPAY ==
--- NOTE | ~2023-03-23 | XR_ITS ---
EXAMINATION: XR CHEST CLINICAL INFORMATION: Cough. COMPARISON: Chest radiograph 07/14/2022. TECHNIQUE: 2 views of the chest were obtained. FINDINGS: Unchanged appearance of the cardiomediastinal silhouette. Stable central bronchovascular prominence. Redemonstration of a subtle nodular-like opacity projecting over the right lower lung in between the anterior fifth and sixth ribs. No new focal infiltrate. No pleural effusion or pneumothorax. No acute osseous findings. XR/XR chest 2V IMPRESSION: 1. No acute cardiopulmonary findings. 2. Unchanged central bronchovascular prominence. 3. Stable nodular-like opacity projecting over the right lower lobe, recommend evaluation with outpatient chest CT for further characterization to evaluate for underlying nodule.
[2023-03-23 16:11] VITALS: BP 152/103; PULSE 75; RESP 18; TEMP 36.7; O2SAT 98; BMI 28.9
--- NOTE | 2023-03-23 16:13 | ED.ABDPAIN ---
HPI - Abdominal Pain General Chief Complaint: Urogenital-Male Stated Complaint: stomach pain, appendix? back pain Time Seen by Provider: 03/23/23 19:00 History of Present Illness HPI narrative: patient with multiple complaints First complaint is intermittent episodes of upper abdominal burning pain that comes and goes over many months, he did vomit recently but today he is not nauseous not vomiting and is tolerating p.o. normally, no diarrhea no dysuria Second complaint is he is concerned he might have an STD because he has genital itching but denies any rash denies any lesions denies any burning with urination denies any discharge denies any sores Third complaint is he says he has been coughing recently but no shortness of breath no chest pain Review of systems there is no headache there is no confusion there is no fainting or feeling faint there is no vision changes no stiff neck no chest pain no shortness of breath no diarrhea no dysuria no skin rash no calf pain or swelling no leg swelling no weakness or numbness Related Data Previous Rx's Medication Instructions Recorded doxycycline monohydrate 100 mg 100 mg PO BID #14 tabs 07/14/22 tablet famotidine 20 mg tablet (Pepcid) 20 mg PO DAILY stomach acid pain 03/23/23 #30 tabs Allergies Allergy/AdvReac Type Severity Reaction Status Date / Time No Known Allergies Allergy Verified 07/14/22 16:55 [facility], [facility] Past Medical History Source: nursing notes reviewed Social History Social History Advance Directives: No Advance Directives Information Provided: No Physical Exam ED Vital Signs: Vital Signs - 24 hr 03/23/23 16:11 03/23/23 18:47 Temperature 98.1 F 98.0 F Pulse Rate 75 60 Respiratory Rate 18 18 Blood Pressure 152/103 H 140/90 H Pulse Oximetry 98 97 Oxygen Delivery Method Room Air BMI result Body Mass Index 28.9 general appearance is no distress comfortable cooperative the eyes are anicteric no pallor The pharynx no redness swelling or exudate, membranes moist, voice is normal Neck is supple Respiratory no distress The chest is clear to auscultation with full symmetric equal breath sounds no adventitious sounds Heart no obvious murmur The abdomen was soft and nontender with no rebound no guarding, no epigastric tenderness Genital exam was normal with no evidence of lesions rashes sores or discharge Extremities full range of motion x4 Skin no rash Neuro no focal motor sensory deficits, gait and balance are normal, motor is 5/5 x4, interaction comprehension and expression are normal, cranial nerves 2-12 intact as tested Course Course Course Narrative: This is an RME: Additional HPI, ROS, PE not included below will be deferred to primary provider. This is a [id number]-male presenting to the emergency department with a complaint of abdominal pain, nausea, and vomiting. Pt states that he has been messing around with women in the streets . Denies any fevers or chills. Last bowel movement was this morning. Abdomen nontender. Also wanting his ears checked. Plan: Labs UA CT NG Patient with complaint of body aches, itching in genital area, concerned about STD but denies any dysuria discharge or lesion, has had some epigastric intermittent upper abdominal all pain, but exam is nontender no rebound no guarding he is tolerating p.o., no nausea or vomiting now, he also complains of a cough , chest x-ray showed no acute pneumonia no acute pathology but there was concern about a nodular like opacity over the right lower lobe an outpatient CT was recommended for further characterization to evaluate the nodule He is getting a primary care doctor now and he is advised that he has several months to get this done and if he is unable to get it done he should return to the ER He is given a copy of his chest x-ray report He is otherwise well-appearing Labs had no acute abnormality except a minor low potassium of 3.2 and he is advised to eat bananas and maintain healthy diet and this should be recheck when he gets a primary care doctor Medical Decision Making Lab Data MDM Lab Attestation statement: I reviewed the patient's lab results. 03/23/23 16:38 03/23/23 16:38 Labs: Lab Results 03/23/23 03/23/23 Range/Units 16:38 19:22 WBC 7.8 (4.8-10.8) X10*3/uL RBC 4.41 L (4.60-5.80) X10*6/uL Hgb 15.2 (14.0-18.0) g/dl Hct 44.0 (42.0-52.0) % MCV 99.8 H (80.0-98.0) fL MCH 34.5 H (27.0-33.0) pg MCHC 34.5 (31.0-36.0) g/dl RDW 13.6 (11.0-16.0) % Plt Count 264 (160-400) X10*3/uL MPV 9.1 L (9.4-12.4) fL Immature Gran % (Auto) 0.4 (0.0-0.4) % Neut % (Auto) 41.4 L (45-73) % Lymph % (Auto) 46.1 H (20-40) % Miner % (Auto) 5.5 (2-11) % Eos % (Auto) 5.8 H (0-4) % Baso % (Auto) 0.8 (0-2) % Lymph # (Auto) 3.6 (1.2-4.9) X10*3/uL Miner # (Auto) 0.4 (0.1-1.2) X10*3/uL Eos # (Auto) 0.5 H (0.0-0.4) X10*3/uL Baso # (Auto) 0.1 (0.0-0.2) X10*3/uL Abs Immat Gran (auto) 0.03 (0.00-0.03) X10*3/uL Absolute Neuts (auto) 3.2 (2.0-8.3) x10*3/uL Absolute Nucleated RBC 0.000 (0.0-0.012) X10*3/uL Nucleated RBC % (auto) 0.0 (0.0-0.2) /100WBC Sodium 142 (135-145) mmol/L Potassium 3.2 L D (3.3-5.1) mmol/L Chloride 107 (96-108) mmol/L Carbon Dioxide 28 (22-29) mmol/L Anion Gap 10 L (12-20) BUN 11 (9-16) mg/dL Creatinine 1.05 (0.5-1.4) mg/dL Estim Creat Clear Calc 85.1 Estimated GFR > 60 Random Glucose 90 (60-115) mg/dL Calcium 9.1 (8.4-10.2) mg/dL Total Bilirubin 0.3 (0.0-1.0) mg/dL Direct Bilirubin 0.1 (0.0-0.5) mg/dL AST 19 (5-37) U/L ALT 15 (0-40) U/L Alkaline Phosphatase 89 (39-117) U/L Total Protein 7.5 (6.5-8.0) g/dL Albumin 4.3 (3.5-5.0) g/dL Urine Color Yellow Urine Appearance Clear Urine pH 6.0 (5.0-9.0) Ur Specific [place] 1.010 (1.005-1.025) Urine Protein Negative (Neg-Trace) mg/dL Urine Glucose (UA) Negative (Negative) mg/dL Urine Ketones Negative (Negative) mg/dL Urine Blood Small (1+) H (Negative) Urine Nitrite Negative (Negative) Ur Leukocyte Esterase Negative (Negative) Urine RBC 0-2 (0-2) /HPF Urine WBC 0-5 (0-5) /HPF Ur Squamous Epith Cells 0-2 (0-2) /HPF Urine Bacteria None Seen (None Seen) Hyaline Casts 0-2 (0-2) /LPF COVID-19 ([facility]) Negative (Negative) COVID-19 Clin Com See Note Discharge Plan Discharge Clinical Impression: Abdominal pain, Cough Patient Disposition: Home, Self-Care Additional Instructions: we do not have results for gonorrhea and chlamydia testing so we will call you with results if any are positive For full STD testing including HIV testing [facility] with [facility] [place] There was no worrisome signs on physical exam, but I will write a prescription for an antacid medication to see if it helps your intermittent stomachaches Your x-ray showed a possible nodule that should be reimaged within 3 months so when you get a primary doctor appointment make sure to let him know about this and if you are unable to get a primary care doctor appointment then return to the ER and we will see if we could do the imaging here or range for it Return any time any worse condition or any concerns If you cannot get an appointment with a primary care doctor in 1 clinic, there may be other clinics that except your insurance so check around Prescriptions: New famotidine [Pepcid] 20 mg tablet 20 mg PO DAILY Qty: 30 0RF No Action doxycycline monohydrate 100 mg tablet 100 mg PO BID Qty: 14 0RF
[2023-03-23 16:43] LABS: MANUAL DIFF FLAG NO
[2023-03-23 16:47] LABS: Appearance Urine Clear; Color Urine Yellow; Glucose Urine UA Negative (Negative); Leukocyte Esterase Urine Negative (Negative); Nitrite Urine Negative (Negative); UMIC TRIGGER UACC YES; Urine Blood Small (1+) (Negative); Urine Ketones Negative (Negative); Urine Protein Negative (Neg-Trace)
[2023-03-23 16:57] LABS: Basophils Absolute Auto 0.1 X10*3/uL (0.0-0.2); Basophils Percent Auto 0.8 % (0-2); Eosinophils Absolute Auto 0.5 X10*3/uL (0.0-0.4); Eosinophils Percent Auto 5.8 % (0-4); Hemoglobin 15.2 g/dl (14.0-18.0); Imm Gran Abs Auto 0.03 X10*3/uL (0.00-0.03); Imm Gran Pct Auto 0.4 % (0.0-0.4); Lymphocytes Absolute Auto 3.6 X10*3/uL (1.2-4.9); Lymphocytes Percent Auto 46.1 % (20-40); Mean Corpuscular HGB Conc 34.5 g/dl (31.0-36.0); Mean Corpuscular Hemoglobin 34.5 pg (27.0-33.0); Mean Corpuscular Volume 99.8 fL (80.0-98.0); Mean Platelet Volume 9.1 fL (9.4-12.4); Monocytes Absolute Auto 0.4 X10*3/uL (0.1-1.2); Monocytes Percent Auto 5.5 % (2-11); Neutrophils Absolute Auto 3.2 x10*3/uL (2.0-8.3); Neutrophils Percent Auto 41.4 % (45-73); Platelet Count 264 X10*3/uL (160-400); Red Blood Count 4.41 X10*6/uL (4.60-5.80); Red Cell Distribution Width 13.6 % (11.0-16.0); White Blood Count 7.8 X10*3/uL (4.8-10.8)
[2023-03-23 17:02] LABS: Bacteria Urine None Seen (None Seen); Hyaline Casts Urine 0-2 /LPF (0-2); RBC Urine 0-2 /HPF (0-2); Squamous Epithelial Cell Urine 0-2 /HPF (0-2); WBC Urine 0-5 /HPF (0-5)
[2023-03-23 17:06] LABS: Alanine Aminotransferase 15 U/L (0-40); Albumin Level 4.3 g/dL (3.5-5.0); Alkaline Phosphatase 89 U/L (39-117); Anion Gap 10 (12-20); Aspartate Amino Transferase 19 U/L (5-37); Bilirubin Direct 0.1 mg/dL (0.0-0.5); Bilirubin Total 0.3 mg/dL (0.0-1.0); Blood Urea Nitrogen 11 mg/dL (9-16); Calcium 9.1 mg/dL (8.4-10.2); Carbon Dioxide 28 mmol/L (22-29); Chloride 107 mmol/L (96-108); Creatinine Clr Calc Pharmacy 85.1; Estimated Glomerular Filt Rate > 60; Glucose Random 90 mg/dL (60-115); Potassium 3.2 mmol/L (3.3-5.1); Sodium 142 mmol/L (135-145); Total Protein 7.5 g/dL (6.5-8.0)
[2023-03-23 18:47] VITALS: BP 140/90; PULSE 60; RESP 18; TEMP 36.7; O2SAT 97
[2023-03-23 19:51] LABS: COVID-19 Test Negative (Negative); IDNOW Serial# BCCEAD1C
[2023-03-24 05:54] LABS: CT PCR NOT DETECTED (Not Detect.); NG PCR NOT DETECTED (Not Detect.)
== END 2023-03-23 20:48 | disposition home or self-care (01) ==
PROVIDERS: Physician Assistant Medical; Emergency Provider Emergency Medicine
DX: R10.9 Unspecified abdominal pain (principal); R05.9 Cough, unspecified; Z11.52 Encounter for screening for COVID-19; Z20.822 Contact with and (suspected) exposure to COVID-19; Z79.899 Other long term (current) drug therapy
CPT/HCPCS: 0353U; 36415; 71046; 80048; 80076; 81001; 85025; 87635; 99282; 99283